=== PATIENT | male | born 1980 | race Caucasian/White ===

== ENCOUNTER 2017-02-16 01:04 | Emergency (ER) | payer OTHER ==
[~2017-02-16] VITALS: Ht 167.6 cm; Wt 93.0 kg
[~2017-02-16 01:04] MED LIST: PERCOCET 5/3251 EACH PO; VALIUM 5MG TABLE5 MG PO
[2017-02-16] MEDS ORDERED: NOMEDS XX (01:25)
--- OUTSIDE RECORDS SUMMARY | 2017-02-16 01:53 | External Medical Summary Rpt | CCD ---
Author Author , JAYESH MCCONNELL Address Unknown Phone [email or web address] Care Team Providers Care Manager Immunology Name Role Phone LINA BHATIA, LINA Unavailable Unavailable [facility]TE [facility] Unavailable Unavailable HOSPITAL, [facility], [facility], Unavailable Unavailable [facility] Unavailable [facility]available HOSPITA, [facility] Unavailable Unavailable INC, [facility] ROGEL CANDACE, ROGEL CANDACE Unavailable Unavailable [facility] Unavailable Unavailable SERVICES, [facility] AARON TAR, AARON TAR Unavailable Unavailable Purpose Continuity of Care Document - 08-27-2010 through 2016 Problems Code Diagnosis DOS Provider Status [id number] LONG-TERM 10-30-2011 [facility] (CURRENT) [facility] USE OF HOSPITA OTHER MEDICATIONS 69747 OTHER 06-12-2011 [facility] 7226 DEGENERATIO 06-12-2011 [facility] RAL DISC SITE UNSPEC 7242 LUMBAGO 06-12-2011 [facility] V571 OTHER 06-12-2011 [facility] THERAPY [facility] 64092 CORNEAL 02-24-2011 [facility] 74819 DISPLCMT 01-02-2011 [facility] LUMBAR [facility] INTERVERT INC DISC W/O MYELOPATHY 8820 OPEN WOUND 12-18-2010 [facility] NO EMERGENCY FINGER SERVICES ALONE W/O MENTION COMP Medications Na ND Rx Da Fi Fi Am Da Di Ph RX Ph St me C No te ll ll ou ys ag ar # ys at rm s nt no ma ic us Or Da si cy ia de te s n re d ER 24 10 10 0 3. 2 CL 24 HI Ac YT 20 -3 -3 50 IN 85 NE ti HR 80 1- 1- 0 IC 01 S ve OM 91 20 20 BR YC 05 11 11 PH ET IN 5 AR T MA A 0. CY 5% LL EY C E OI NT ME NT OX 00 09 09 0 12 30 CL 24 GO Ac YC 40 -2 -3 0. IN 63 DO ti OD 68 1- 0- 00 IC 63 FS ve ON 53 20 20 0 [place] E 00 11 11 PH HC 1 AR AL L MA AN 30 CY MG LL C TA BL ET ME 68 09 09 0 30 30 CL 24 GO Ac LO 18 -2 -2 .0 IN 63 DO ti XI 00 1- 7- 00 IC 61 FS ve CA 50 20 20 KY M 20 11 11 PH 15 1 AR AL MA AN MG CY TA LL BL C ET HY 00 09 09 0 60 30 CL [address] 60 -2 -2 .0 IN 63 DO ti OC 33 1- 7- 00 IC 62 FS ve OD 88 20 20 [place] ON 73 11 11 PH -A 2 AR AL CE MA AN TA CY ND NO LL PH C N 10 -3 25 PO 51 09 09 5 52 30 CL 24 AR Ac LY 99 -0 -0 7. IN 49 NO ti ET 10 2- 2- 00 IC 83 LD ve HY 45 20 20 0 LE 75 11 11 PH RI NE 7 AR CH MA AR GL CY D YC W OL LL C 33 50 PO WD OX 10 08 08 0 12 30 CL 24 SC Ac YC 70 -2 -3 0. IN 45 HO ti OD 20 7- 1- 00 IC 67 LD ve ON 00 20 20 0 E 90 11 11 PH AL HC 1 AR AN L MA C 30 CY MG LL C TA BL ET DI 00 08 08 0 30 30 CL 24 SC Ac AZ 59 -2 -3 .0 IN 45 HO ti EP 15 7- 1- 00 IC 68 LD ve AM 61 20 20 5 91 11 11 PH AL 0 AR AN MG MA C CY TA BL LL ET C IB 53 06 08 5 90 30 CL 24 GO Ac UP 74 -2 -0 .0 IN 12 DO ti RO 60 9- 1- 00 IC 39 FS ve FE 46 20 20 KY N 40 11 11 PH 40 1 AR AL 0 MA AN MG CY TA LL BL C ET DI 00 08 08 0 26 26 CL 24 GO Ac AZ 59 -0 -0 .0 IN 29 DO ti EP 15 1- 1- 00 IC 62 FS ve AM 61 20 20 KY 5 91 11 11 PH 0 AR AL MG MA AN CY TA BL LL ET C OX 10 08 08 0 10 30 CL 24 GO Ac YC 70 -0 -0 4. IN 29 DO ti OD 20 1- - IC 63 FS ve ON 00 20 20 0 KY E 90 11 11 PH HC 1 AR AL L MA AN 30 CY MG LL C TA BL ET OX 00 06 07 0 12 30 CL 24 GO Ac YC 40 -2 -0 0. IN 12 DO ti OD 60 9- 2- 00 IC 40 FS ve ON 52 20 20 0 KY -A 20 11 11 PH CE 1 AR AL TA MA AN ND CY NO PH LL EN C 7. 5- 32 5 OX 10 06 07 0 12 30 CL 24 GO Ac YC 70 -2 -0 0. IN 12 DO ti OD 20 9- 2- 00 IC 61 FS ve ON 00 20 20 0 KY E 90 11 11 PH HC 1 AR AL L MA AN 30 CY MG LL C TA BL ET DI 00 06 07 0 30 30 CL 24 GO Ac AZ 59 -2 -0 .0 IN 12 DO ti EP 15 9- 2- 00 IC 62 FS ve AM 62 20 20 KY 01 11 11 PH 10 0 AR AL MA AN MG CY TA LL BL C ET IB 53 06 06 5 90 30 CL 24 GO Ac UP 74 -2 -2 .0 IN 12 DO ti RO 60 9- 9- 00 IC 39 FS ve FE 46 20 20 KY N 40 11 11 PH 40 1 AR AL 0 MA AN MG CY TA LL BL C ET OX 10 06 06 0 60 30 CL 23 SC Ac YC 70 -0 -0 .0 IN 96 HO ti OD 20 1- 2- 00 IC 19 LD ve ON 00 20 20 E 80 11 11 PH AL HC 1 AR AN L MA C 15 CY MG LL C TA BL ET DI 00 06 06 0 60 30 CL 23 SC Ac AZ 59 -0 -0 .0 IN 96 HO ti EP 15 1- 2- 00 IC 20 LD ve AM 62 20 20 01 11 11 PH AL 10 0 AR AN MA C MG CY TA LL BL C ET OX 00 05 05 0 12 30 76 GO Ac YC 60 -0 -0 0. 30 DO ti OD 34 3- 5- 00 73 FS ve ON 99 20 20 0 KY E 22 11 11 HC 1 AL L AN 30 MG TA BL ET DI 00 05 05 0 60 30 CL 23 GO Ac AZ 59 -0 -0 .0 IN 77 DO ti EP 15 3- 3- 00 IC 70 FS ve AM 62 20 20 KY 01 11 11 PH 10 0 AR AL MA AN MG CY TA LL BL C ET OX 10 05 05 0 60 30 CL 23 GO Ac YC 70 -0 -0 .0 IN 77 DO ti OD 20 3- 3- 00 IC 71 FS ve ON 00 20 20 KY E 80 11 11 PH HC 1 AR AL L MA AN 15 CY MG LL C TA BL ET Procedures Procedure DOS Code Location Performer Comment ECG 47783 [facility] ROUTINE 2 N N ECG [facility] W/LEAST HOSPITA HOSPITA 12 LDS TRCG ONLY W/O I&R PHYSICAL 36495 [facility] 2 [facility] N MRI 42039 SEB GRIGSBY SPINAL 1 [facility]OSP CANAL INC INC LUMBAR W/O CONTRAST MATERIAL 3D 72339 SEB GRIGSBY RENDERING 1 [facility]OS[facility] W/INTERP INC INC & POSTPROCE SS SUPERVISI ON SIMPLE 16617 [facility] WALKER TAR REPAIR 1 EMERGENCY SCALP/NEC SERVICES K/AX/AMEENA T/TRUNK 2.5CM/< CLOSURE 8659 SEB GRIGSBY SKIN&SUBC 1 [facility] HOSP UTANEOUS INC INC TISSUE OTHER SITES Encounters Encounter Start End Date Code Location Performer Type Date [facility] [address] [facility] T OFFICE 70408 [facility] OUTPATIEN 1 1 [facility] 20 MINUT[facility] SEB - 1 1 [facility] OUTPATIEN [facility] T OFFICE 71824 LINA MILLS OUTPATIEN 1 1 J[facility]TE J[facility]TE [facility] 30 MINUTES [facility] SEB - 1 1 [facility] OUTPATIEN [facility] T EMERGENCY 61603 SEB 1 1 [facility] HOS[facility] DEPARTMEN INC T VISIT LOW/MODER SEVERITY EMERGENCY 08529 [facility] WALK[facility] TAR 1 1 EMERGENCY DEPARTMEN SERVICES T VISIT MODERATE SEVERITY
--- OUTSIDE RECORDS SUMMARY | 2017-02-16 01:53 | External Medical Summary Rpt | CCD ---
Author Author , JAYESH MCCONNELL Address Unknown Phone [email or web address] Care Team Providers Care Surgical Coder Name Role Phone LINA BHATIA, LINA Unavailable Unavailable [facility] Unavailable Unavailable HOSPITAL, [facility], Unavailable [facility], Unavailable Unavailable [facility] Unavailable Unavailable HOSPITA, [facility] HOSPITA [facility] Unavailable Unavailable INC, [facility] ROGEL CANDACE, ROGEL CANDACE Unavailable Unavailable [facility] Unavailable Unavailable SERVICES, [facility] AARON TAR, AARON TAR Unavailable Unavailable Purpose Continuity of Care Document - 08-27-2010 through 2016 Problems Code Diagnosis DOS Provider Status [id number] LONG-TERM 10-30-2011 [place] (CURRENT) [facility] USE OF HOSPITA OTHER MEDICATIONS 71424 OTHER 06-12-2011 [facility] 7226 DEGENERATIO 06-12-2011 [facility] RAL DISC SITE UNSPEC 7242 LUMBAGO 06-12-2011 [facility] V571 OTHER 06-12-2011 [facility] 03698 CORNEAL 02-24-2011 [facility] 67494 DISPLCMT 01-02-2011 [place] LUMBAR [facility] INTERVERT INC DISC W/O MYELOPATHY [...] AR AL CE MA AN TA CY IA NO LL PH C N 10 -3 [...] CE 1 AR AL TA MA AN IA CY NO PH LL EN C 7. [...] Procedure DOS Code Location Performer Comment ECG 56504 [facility] ROUTINE 2 N N ECG [facility] W/LEAST HOSPITA HOSPITA 12 LDS TRCG ONLY W/O I&R PHYSICAL 82351 [facility] 2 [facility] N MRI 39905 SEB GRIGSBY SPINAL 1 [facility] CANAL INC INC LUMBAR W/O CONTRAST MATERIAL 3D 35009 SEB GRIGSBY RENDERING 1 [facility] W/INTERP INC INC & POSTPROCE SS SUPERVISI ON SIMPLE 24590 [facility] WALKER TAR REPAIR 1 EMERGENCY SCALP/NEC SERVICES K/AX/AMEENA T/TRUNK 2.5CM/< CLOSURE 8659 SEB GRIGSBY SKIN&SUBC 1 [facility] UTANEOUS INC INC TISSUE OTHER SITES Encounters Encounter Start End Date Code Location Performer Type Date [facility] T OFF[facility] 99388 [facility] OUTPATIEN [address] [facility] 20 MINUTES [facility] SEB - 1 1 [facility]PATIEN [facility] T OFFICE 80761 LINA MILLS OUTPATIEN [address] [facility] 30 MINUTES [facility]B - 1 1 [facility] OUTPATIEN [facility] T EMERGENCY 08133 SEB 1 1 [facility] DEPARTMEN INC T VISIT LOW/MODER SEVERITY EMERGENCY 14765 [facility] WALKER TAR 1 1 EMERGENCY DEPARTMEN SERVICES T VISIT MODERATE SEVERITY
--- OUTSIDE RECORDS SUMMARY | 2017-02-16 01:54 | External Medical Summary Rpt | CCD ---
Demographics Preferred Language Liberian Marital Status Unknown Scientologist Affiliation Unknown Race Unknown Ethnic Group Unknown Author Author , JAYESH Organization JAYESH Address Unknown Phone Immunization Unable to retrieve immunization data due to connection failure with Immunization Registry. Please try again later.
--- OUTSIDE RECORDS SUMMARY | 2017-02-16 01:54 | External Medical Summary Rpt | CCD ---
Demographics Preferred Language [place] Marital Status Unknown Congregational Affiliation Unknown Race Unknown Ethnic Group Unknown Author Author , JAYESH Organization JAYESH Address Unknown Phone Immunization Unable to retrieve immunization data due to connection failure with Immunization Registry. Please try again later.
--- OUTSIDE RECORDS SUMMARY | 2017-02-16 01:54 | External Medical Summary Rpt ---
Author Author JAYESH Jimenez, JAYESH Production Organization [employer] Address Unknown Phone Unavailable
--- OUTSIDE RECORDS SUMMARY | 2017-02-16 01:54 | External Medical Summary Rpt | CCD ---
Author Author , JAYESH MCCONNELL Address Unknown Phone [email or web address] Care Team Providers Care Hospitality Team Member Name Role Phone LINA BHATIA, LINA Unavailable Unavailable JANNETTE [facility] Unavailable Unavailable HOSPITAL, [facility], Unavailable [facility]available [facility], Unavailable Unavailable [facility] Unavailable Unavailable HOSPITA, [facility] Unavailable Unavailable INC, [facility] ROGEL CANDACE, ROGEL CANDACE Unavailable Unavailable [facility] Unavailable Unavailable SERVICES, [facility] AARON TAR, AARON TAR Unavailable Unavailable Purpose Continuity of Care Document - 08-27-2010 through 2016 Problems Code Diagnosis DOS Provider Status [id number] LONG-TERM 10-30-2011 [place] (CURRENT) [facility] USE OF HOSPITA OTHER MEDICATIONS 88947 OTHER 06-12-2011 [facility] 7226 DEGENERATIO 06-12-2011 [facility] RAL DISC SITE UNSPEC 7242 LUMBAGO 06-12-2011 [facility] V571 OTHER 06-12-2011 [facility] THERAPY [facility] 99775 CORNEAL 02-24-2011 [facility] 11118 DISPLCMT 01-02-2011 [place] LUMBAR [facility] INTERVERT INC DISC W/O MYELOPATHY 8820 [...] AR AL CE MA AN TA CY NH NO LL PH C N 10 -3 [...] IN 45 HO ti OD 20 7- IC 67 LD ve ON 00 20 20 0 E 90 11 11 PH AL HC 1 AR AN L MA C 30 CY MG LL C TA BL ET DI 00 08 08 0 30 30 CL 24 SC Ac AZ 59 -2 -3 .0 IN 45 HO ti EP 15 7- - IC 68 LD ve AM 61 20 [...] 29 DO ti EP 15 1- 1- IC 62 FS ve AM 61 20 20 [place] 5 91 11 11 PH 0 AR AL MG MA AN CY TA BL LL ET C OX 10 08 08 0 10 30 CL 24 GO Ac YC 70 -0 -0 4. IN 29 DO ti OD 20 1- IC 63 FS ve ON 00 20 [...] CE 1 AR AL TA MA AN NH CY NO PH LL EN C 7. [...] 3- 00 IC 71 FS ve ON 20 KY E 80 11 11 PH HC 1 AR AL L MA AN 15 CY MG LL C TA BL ET Procedures Procedure DOS Code Location Performer Comment ECG 85892 [facility] ROUTINE 2 N N ECG [facility] L[facility] TRCG ONLY W/O I&R PHYSICAL 78364 [facility] TH[facility]AP[facility] 2 [facility] N 3D 75749 SEB JOYCEON RENDERING 1 [facility] W/INTERP INC INC & POSTPROCE SS SUPERVISI ON MRI 54082 SEB GRIGSBY SPINAL 1 [facility] CANAL INC INC LUMBAR W/O CONTRAST MATERIAL SIMPLE 62205 ARPIT WALKER TAR REPAIR 1 EMERGENCY SCALP/NEC SERVICES K/AX/AMEENA T/TRUNK 2.5CM/< CLOSURE 8659 SEB SEB SKIN&SUBC 1 [facility] UTANEOUS INC INC TISSUE OTHER SITES Encounters Encounter Start End Date Code Location Performer Type Date [facility] 59222 [facility] OUTPATI[facility] 1 1 [facility] [address] [facility] SEB - [address] [facility]PATIEN [facility] T OFFICE 46879 LINA MILLS OUTPATIEN 1 1 JANNETTE JANNETTE [facility] [address] [facility] SEB - [address] [facility] OUTPATIEN [facility] T EMERGENCY 30796 ARPIT AARON TAR 1 1 EMERGENCY DEPARTMEN SERVICES T VISIT MODERATE SEVERITY EMERGENCY 99955 SEB 1 1 [facility] DEPARTMEN INC T VISIT LOW/MODER SEVERITY
--- OUTSIDE RECORDS SUMMARY | 2017-02-16 01:54 | External Medical Summary Rpt | CCD ---
Author Author , JAYESH MCCONNELL Address Unknown Phone [email or web address] Care Team Providers Care Blood Bank Laboratory Technician Name Role Phone LINA BHATIA, LINA Unavailable Unavailable [facility]TE [facility] Unavailable Unavailable HOSPITAL, [facility], Unavailable [facility]available [facility], Unavailable Unavailable [facility] Unavailable Unavailable HOSPITA, [facility] Unavailable Unavailable INC, [facility] ROGEL CANDACE, ROGEL CANDACE Unavailable Unavailable [facility] Unavailable Unavailable SERVICES, [facility] AARON TAR, AARON TAR Unavailable Unavailable Purpose Continuity of Care Document - 08-27-2010 through 2016 Problems Code Diagnosis DOS Provider Status [id number] LONG-TERM 10-30-2011 [place] (CURRENT) [facility] USE OF HOSPITA OTHER MEDICATIONS 37264 OTHER 06-12-2011 [facility] 7226 DEGENERATIO 06-12-2011 [facility] RAL DISC SITE UNSPEC 7242 LUMBAGO 06-12-2011 [facility] V571 OTHER 06-12-2011 [facility] THERAPY [facility] 86539 CORNEAL 02-24-2011 [facility] 52972 DISPLCMT 01-02-2011 [place] LUMBAR [facility] INTERVERT INC [...] AR AL CE MA AN TA CY MD NO LL PH C N 10 -3 [...] CE 1 AR AL TA MA AN MD CY NO PH LL EN C 7. [...] Procedure DOS Code Location Performer Comment ECG 08969 [facility] ROUTINE 2 N N ECG [facility] 12 LDS TRCG ONLY W/O I&R PHYSICAL 94470 [facility] THERAPY [address] [facility] N 3D 68532 SEB JOYCEON RENDERING 1 [facility] W/INTERP INC INC & POSTPROCE SS SUPERVISI ON MRI 36458 SEB GRIGSBY SPINAL 1 [facility] CANAL INC INC LUMBAR W/O CONTRAST MATERIAL SIMPLE 54847 ARPIT WALKER TAR REPAIR 1 EMERGENCY SCALP/NEC SERVICES K/AX/AMEENA T/TRUNK 2.5CM/< CLOSURE 8659 SEB SEB SKIN&SUBC 1 [facility] UTANEOUS INC INC TISSUE OTHER SITES Encounters Encounter Start End Date Code Location Performer Type Date [facility] 2 [facility] T OFFICE 23308 TACHO MAR[facility] OUTPATIEN 1 1 VISION [facility] 20 MINUTES [facility] SEB - 1 1 [facility] OUTPATIEN [facility] T OFFICE 17437 LINA MILLS OUTPATIEN 1 1 JANNETTE JANNETTE [facility] 30 MINUTES [facility] SEB - 1 1 [facility] OUTPATIEN [facility] T EMERGENCY 34841 ARPIT AARON TAR 1 1 EMERGENCY DEPARTMEN SERVICES T VISIT MODERATE SEVERITY EMERGENCY 78525 SEB 1 1 [facility] DEPARTMEN INC T VISIT LOW/MODER SEVERITY
[2017-02-16 02:34] LABS: URINE BILIRUBIN - DIPSTICK NEGATIVE (NEG); URINE BLOOD NEGATIVE (NEG)
[2017-02-16 02:45] LABS: HEMOGLOBIN 14.4 g/dL (14.1-18.0); LYMPH % 30.9 % (10-50)
--- NOTE | 2017-02-16 03:10 | Emergency Room Report ---
History of Present Illness Time Seen by MD Joseph Presenting Problem in Triage Pt arrived:Walked Presenting Problem:PT STATES HE WAS CUTTING UP A DEER ABOUT A WEEK AGO AND NOW HAS AREAS ON FACE, HANDS, ARMS, STATES HE THINKS HE HAS A PARASITE FROM SKINNING DEER. 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 N Clinical Suspician of Infection? N Mental Status: 1 - Regular (Normal Baseline) Sepsis Risk:Possible Sepsis Risk Have you (or family members/close friends) recently traveled outside the [place]? N If Yes, where/when: Have you had exposure to infectious disease within the past month? N TB? Other? Specify: Source patient, RN notes reviewed, family, RN/MD Exam Limitations no limitations Comment This is a 36-year-old male presenting to the emergency room with a sore on his LEFT palm, questioning if she could have a possible parasite infection secondary to handling deer meat with bare hands. He denies any nausea, vomiting or diarrhea but he has occasional muscle aches/ cramps, which are not unusual for him. ALLERGIES Coded Allergies: NO KNOWN ALLERGIES (02/16/17) Home Medications Reported Medications No Home Medications (NO HOME MEDICATIONS) 1 EACH XX ONCE History Medical History General Angina: No AL: No Hypertension? Yes Hyperlipidemia? No CHF? No COPD? No Asthma? No CVA? No Seizures? No Diabetes? No GB Disease: No MRSA? No TB? No Cancer? No Immunization Hx DT/Tetanus < 1 YR AGO Surgical Hx Previous Surgery?Y KIDNEY SURGERY KNEE SURGERY HAND SURGERY Social History Smoking Hx Smoker: Current Every Day Smoker Tobacco: Yes Type Cigarettes Packs/day 1 1/2 - 2 Packs Alcohol Alcohol: No Review of Systems All Other Systems Reviewed and Negative Skin lesions (LEFT palm lesion) Physical Exam Vital Signs Vital Signs Date Time Temp Pulse Resp B/P Pulse O2 O2 Flow FiO2 Ox Delivery Rate 02/16 0321 102 20 156/99 98 02/16 0242 102 20 156/99 98 02/16 0203 102 14 162/106 98 02/16 0111 98.4 107 22 164/116 99 General Appearance normal appearance, WD/WN, no apparent distress, anxious Respiratory Status Yes: trachea midline, chest symmetrical, non tender chest. No: respiratory distress. Lung Sounds bilateral: normal breath sounds, lungs clear. Cardiovascular normal exam, regular rate/rhythm, no peripheral edema, no gallop, no JVD, no murmur, no rub, normal peripheral pulses Gastrointestinal normal bowel sounds, normal exam, non tender, soft, no organomegaly Extremities non-tender, normal range of motion, normal inspection Neurologic alert, clinical science liaison II-XII nml as tested, normal exam, oriented x 3 Mental status normal mood/affect Skin normal color, warm/dry, LEFT palm 0.5 cm superficial laceration, secondary to knife cut while skinning a deer over the weekend, with normal healing process , no discharge, no surrounding erythema. Medical Decision Making LABS/Meds/Orders Pt receiving controlled substance in ED? No Comment Appropriate blood work obtained patient was advised to follow-up with infectious disease specialist at [facility] (per discharge instructions), at his earliest convenience. Patient will return promptly to the emergency room for any new develop one such as nausea, vomiting, diarrhea, muscle aches, etc. Results/Orders Laboratory Tests 02/16/17224: Trichinella Antibody Pending 02/16/17224: Myoglobin Pending, Toxoplasma IgA Ab Pending, Toxoplasma gondii IgG Pending, Toxoplasma gondii IgM Pending 02/16/17224: Creatine Kinase 267, CK-MB (CK-2) Rel Index 0.9, CK and CKMB Interp 2.5, Troponin I < 0.02, Toxoplasma IgA Ab Cancelled, Toxoplasma gondii IgG Cancelled, Toxoplasma gondii IgM Cancelled 02/16/17224: Sodium 139, Potassium 3.1 L, Chloride 100, Carbon Dioxide 27, BUN 10, Creatinine 1.2, Estimated Creat Clear 111, Estimated GFR (MDRD) 68, Glucose 127 H, Calcium 9.6, Total Bilirubin 0.3, AST 23, ALT 32, Alkaline Phosphatase 132 H , Total Protein 8.0, Albumin 4.1, Globulin 3.9 H, Albumin/Globulin Ratio 1.1, WBC 6.5, RBC 4.80, Hgb 14.4, Hct 42.4, MCV 88.4, RDW 12.3, Plt Count 150, MPV 8.8, Gran % 56.6, Gran # 3.7, Lymphocytes % 30.9, Monocytes % 8.5, Eosinophils % 3.7, Basophils % 0.2, Lymphocytes # 2.0, Monocytes # 0.6, Eosinophils # 0.2, Basophils # 0.0, PUBS MCHC 34.0, MCH 30.1, Leptospirosis Antibody Pending 02/16/17 0210: Urine Color YELLOW, Urine Appearance CLEAR, Urine pH 6.0, Ur Specific [place] 1.015, Urine Protein NEGATIVE, Urine Ketones NEGATIVE, Urine Blood NEGATIVE, Urine Nitrate NEGATIVE, Urine Bilirubin NEGATIVE, Urine Urobilinogen 0.2, Ur Leukocyte Esterase NEGATIVE, Amorphous Sediment TRACE, Urine Mucus TRACE, Urine Glucose NEGATIVE Orders Procedure Date/time Status TOXOPLASMA IGG AB 02/16 225 Active LEPTOSPIRAL AB 02/16 215 Active TRICHINELLA AB 02/16 118 Active MYOGLOBIN 02/16 118 Active CARDIAC ENZYMES 02/16 118 Complete URINALYSIS/COMPLETE 02/16 117 Complete CBC WITH AUTO DIFF 02/16 117 Complete CHEM 12 PROFILE 02/16 117 Complete Departure Departure Time of Disposition 0239 Disposition DC Home or Self Care(routine) Clinical Impression Primary Impression: Myalgia Secondary Impressions: Exposure to communicable diseases Condition STABLE Referrals BRADLY CARPENTER: Today after leaving ER Patient Instructions DI for Accidental Exposure to Body Fluids Additional Instructions Please follow-up with the patient disease specialist at [facility] ( Dr. Bradly Carpenter) at your earliest convenience. Please call the office today in order to schedule a follow-up appointment. See your PCP within 2 days, as well. If unable to see any othe physicians listed above, return to this ER for re- evaluation. Discharge Counseling Counseled pt/family regarding diagnosis, test results, medications/RX, home care, follow up needs Comment Please follow-up with the patient disease specialist at [facility] ( Dr. Bradly Carpenter) at your earliest convenience. Please call the office today in order to schedule a follow-up appointment. See your PCP within 2 days, as well. ED Critical Care Critical Care No at [phone]
--- NOTE | 2017-02-16 03:10 | Emergency Room Report ---
History of Present Illness Time Seen by MD Joseph Presenting Problem in Triage Pt arrived:Walked Presenting Problem:PT STATES HE WAS CUTTING UP A DEER ABOUT A WEEK AGO AND NOW HAS AREAS ON FACE, HANDS, ARMS, STATES HE THINKS HE HAS A PARASITE FROM SKINNING DEER. 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 N Clinical Suspician of Infection? N Mental Status: 1 - Regular (Normal Baseline) Sepsis Risk:Possible Sepsis Risk Have you (or family members/close friends) recently traveled outside the [place]? N If Yes, where/when: Have you had exposure to infectious disease within the past month? N TB? Other? Specify: Source patient, RN notes reviewed, family, RN/MD Exam Limitations no limitations Comment This is a 36-year-old male presenting to the emergency room with a sore on his LEFT palm, questioning if she could have a possible parasite infection secondary to handling deer meat with bare hands. He denies any nausea, vomiting or diarrhea but he has occasional muscle aches/ cramps, which are not unusual for him. ALLERGIES Coded Allergies: NO KNOWN ALLERGIES (02/16/17) Home Medications Reported Medications No Home Medications (NO HOME MEDICATIONS) 1 EACH XX ONCE History Medical History General Angina: No DC: No Hypertension? Yes Hyperlipidemia? No CHF? No COPD? No Asthma? No CVA? No Seizures? No Diabetes? No GB Disease: No MRSA? No TB? No Cancer? No Immunization Hx DT/Tetanus < 1 YR AGO Surgical Hx Previous Surgery?Y KIDNEY SURGERY KNEE SURGERY HAND SURGERY Social History Smoking Hx Smoker: Current Every Day Smoker Tobacco: Yes Type Cigarettes Packs/day 1 1/2 - 2 Packs Alcohol Alcohol: No Review of Systems All Other Systems Reviewed and Negative Skin lesions (LEFT palm lesion) Physical Exam Vital Signs Vital Signs Date Time Temp Pulse Resp B/P Pulse O2 O2 Flow FiO2 Ox Delivery Rate 02/16 0321 102 20 156/99 98 02/16 0242 102 20 156/99 98 02/16 0203 102 14 162/106 98 02/16 0111 98.4 107 22 164/116 99 General Appearance normal appearance, WD/WN, no apparent distress, anxious Respiratory Status Yes: trachea midline, chest symmetrical, non tender chest. No: respiratory distress. Lung Sounds bilateral: normal breath sounds, lungs clear. 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 Medical Decision Making LABS/Meds/Orders Pt receiving controlled substance in ED? No Comment Appropriate blood work obtained patient was advised to follow-up with infectious disease specialist at [facility] (per discharge instructions), at his earliest convenience. Patient will return promptly to the emergency room for any new develop one such as nausea, vomiting, diarrhea, muscle aches, etc. Results/Orders Laboratory Tests 02/16/17224: Trichinella Antibody Pending 02/16/17224: Myoglobin Pending, Toxoplasma IgA Ab Pending, Toxoplasma gondii IgG Pending, Toxoplasma gondii IgM Pending 02/16/17224: Creatine Kinase 267, CK-MB (CK-2) Rel Index 0.9, CK and CKMB Interp 2.5, Troponin I < 0.02, Toxoplasma IgA Ab Cancelled, Toxoplasma gondii IgG Cancelled, Toxoplasma gondii IgM Cancelled 02/16/17224: Sodium 139, Potassium 3.1 L, Chloride 100, Carbon Dioxide 27, BUN 10, Creatinine 1.2, Estimated Creat Clear 111, Estimated GFR (MDRD) 68, Glucose 127 H, Calcium 9.6, Total Bilirubin 0.3, AST 23, ALT 32, Alkaline Phosphatase 132 H , Total Protein 8.0, Albumin 4.1, Globulin 3.9 H, Albumin/Globulin Ratio 1.1, WBC 6.5, RBC 4.80, Hgb 14.4, Hct 42.4, MCV 88.4, RDW 12.3, Plt Count 150, MPV 8.8, Gran % 56.6, Gran # 3.7, Lymphocytes % 30.9, Monocytes % 8.5, Eosinophils % 3.7, Basophils % 0.2, Lymphocytes # 2.0, Monocytes # 0.6, Eosinophils # 0.2, Basophils # 0.0, PUBS MCHC 34.0, MCH 30.1, Leptospirosis Antibody Pending 02/16/17 0210: Urine Color YELLOW, Urine Appearance CLEAR, Urine pH 6.0, Ur Specific [place] 1.015, Urine Protein NEGATIVE, Urine Ketones NEGATIVE, Urine Blood NEGATIVE, Urine Nitrate NEGATIVE, Urine Bilirubin NEGATIVE, Urine Urobilinogen 0.2, Ur Leukocyte Esterase NEGATIVE, Amorphous Sediment TRACE, Urine Mucus TRACE, Urine Glucose NEGATIVE Orders Procedure Date/time Status TOXOPLASMA IGG AB 02/16 225 Active LEPTOSPIRAL AB 02/16 215 Active TRICHINELLA AB 02/16 118 Active MYOGLOBIN 02/16 118 Active CARDIAC ENZYMES 02/16 118 Complete URINALYSIS/COMPLETE 02/16 117 Complete CBC WITH AUTO DIFF 02/16 117 Complete CHEM 12 PROFILE 02/16 117 Complete Departure Departure Time of Disposition 0239 Disposition DC Home or Self Care(routine) Clinical Impression Primary Impression: Myalgia Secondary Impressions: Exposure to communicable diseases Condition STABLE Referrals BRADLY CARPENTER: Today after leaving ER Patient Instructions DI for Accidental Exposure to Body Fluids Additional Instructions Please follow-up with the patient disease specialist at [facility] ( Dr. Bradly Carpenter) at your earliest convenience. Please call the office today in order to schedule a follow-up appointment. See your PCP within 2 days, as well. If unable to see any othe physicians listed above, return to this ER for re- evaluation. Discharge Counseling Counseled pt/family regarding diagnosis, test results, medications/RX, home care, follow up needs Comment Please follow-up with the patient disease specialist at [facility] ( Dr. Bradly Carpenter) at your earliest convenience. Please call the office today in order to schedule a follow-up appointment. See your PCP within 2 days, as well. ED Critical Care Critical Care No at [phone]
[2017-02-16 03:21] VITALS: BP 156/99
[2017-02-21 05:22] LABS: TOXOPLASMA GONDII IGA ANTIBODY < 0.90 EIA (< 0.90)
== END 2017-02-16 03:22 | disposition home or self-care (01) ==
LOC: ER 01:04
PROVIDERS: Emergency Medicine
DX: M79.1 Myalgia (principal); Z20.9 Contact with and (suspected) exposure to unspecified communicable disease; I10 Essential (primary) hypertension; F17.210 Nicotine dependence, cigarettes, uncomplicated

== ENCOUNTER 2017-03-04 10:23 | Emergency (ER) | payer BC ==
[~2017-03-04] VITALS: Ht 167.6 cm; Wt 90.7 kg
[~2017-03-04 10:23] MED LIST changes: +NOMEDS XX
--- NOTE | 2017-03-04 10:49 | Urgent Treatment Center Report ---
History of Present Issue Date/Time Seen by Provider 03/04/17 1040 Visit Reason Pt arrived:Walked Presenting Problem:C/O RED SPOTS/SCABS ALL OVER BODY Location if Accident: Onset of symptoms date/time:/ or onset unknown for:MEDICAL HX UNKNOWN Have you (or family members/close friends) recently traveled outside the [place]? N If Yes, where/when: Have you had exposure to infectious disease within the past month? TB? Other? Specify: Patient state that he has been noticing red spots that have popped up on his body State that one was on his abdominal area and he put a bandage around it and now it is irritated and scabbing all around the area. State that he also had a place come up on his left forearm area and thinks that something may have come out of it State that he put a bandage on it and some cream and now it looks infected. State that he has been having all these areas pop up on him after cleaning deer several weeks ago. State that he went to the ER and was referred to Infectious Disease Dr Fisher at however has never follow up with Dr Fisher or his family doctor as advised. ALLERGIES Coded Allergies: No Known Allergies (03/04/17) Home Medications Reported Medications No Home Medications (NO HOME MEDICATIONS) 1 EACH XX ONCE History Medical History General CAD? No Angina: No SC: No Hypertension? Yes Hyperlipidemia? No CHF? No DVT? No PE? No COPD? No Asthma? No Anemia? No GERD? No Gastric ulcers? No GI Bleed? No Hernia? No Thyroid Problems? No Hypothyroidism? No CVA? No Seizures? No Diabetes? No Renal Insuffiency? No UTI? No Stones? No BPH? No GB Disease: No Nephritic Syndrome? No Asplenia? No Hepatitis? No Sickle Cell Disease? No Arthritis? No Migraines? No Cataracts? No Glaucoma? No MRSA? No HIV? No TB? No Anxiety? No Depression? No Cancer? No More? No Immunization HX DT/Tetanus < 1 YR AGO Surgical Hx Previous Surgery?Y KIDNEY SURGERY KNEE SURGERY HAND SURGERY Social History Smoking Hx Smoker: Current Every Day Smoker Tobacco: Yes Type Cigarettes Packs/day 1 1/2 - 2 Packs Alcohol Alcohol: No Review of Systems All Other Systems Reviewed and Negative Skin dryness, lesions, rash Physical Exam Vital Signs Vital Signs Date Time Temp Pulse Resp B/P Pulse O2 O2 Flow FiO2 Ox Delivery Rate 03/04 1033 98.7 121 20 161/102 100 General Appearance normal appearance, WD/WN, no apparent distress Respiratory Status Yes: trachea midline, chest symmetrical. No: respiratory distress. Cardiovascular normal exam, regular rate/rhythm, no peripheral edema Neurologic alert, normal exam, oriented x 3 Skin drainage, lesions, Area noted on left forearm with drainage, several red scabbed areas on his abdomen and legs State that has been having problems with his skin for over 3 weeks now Medical Decision Making LABS/Meds/Orders Pt receiving controlled substance in ED? No Progress [facility] Progress Notes Comment Spoke to [facility] Dr Hightower and will see patient today at 130 advised do not start patient on medication that they will see him and prescribe accordiningly Departure Departure Time of Disposition 1113 Disposition DC Home or Self Care(routine) Clinical Impression Primary Impression: Skin infection Condition STABLE Referrals [facility] BRADLY FISHER: Today after leaving ER Make appointment dayanara JOSSELYN HAJI (Family) Patient Instructions DI for Rash Additional Instructions DO no pick or scratch at rash areas Keep area clean and dry Call Dr Fisher today after leaving the clinic and try to get in to see him as soon as possible Follow up with Dermatology today also and make appointemtn Return if needed Discharge Counseling Counseled pt/family regarding diagnosis, follow up needs at 1126
[2017-03-04 11:31] VITALS: BP 161/102
== END 2017-03-04 11:31 | disposition home or self-care (01) ==
LOC: UTC 10:23
DX: L03.114 Cellulitis of left upper limb (principal)

== ENCOUNTER → 2017-03-13 | Outpatient (CLI) | payer BC ==
[2017-03-13 18:28] LABS: LYMPH # 2.1 K/mm3 (0.7-4.5); LYMPH % 19.3 % (10-50)
[2017-03-13 18:38] LABS: HEMOGLOBIN 16.1 g/dL (14.1-18.0)
[2017-03-13 19:24] LABS: BUN 12 mg/dL (7-18)
[2017-03-13 19:50] LABS: GFR (ESTIMATED) 68 ML/MIN (>60)
== END ==
LOC: LAB 18:04
PROVIDERS: Nurse Practitioner Family
DX: R53.83 Other fatigue (principal); E55.9 Vitamin D deficiency, unspecified

== ENCOUNTER → 2017-03-23 | Outpatient (CLI) | payer BC ==
--- NOTE | 2017-03-24 22:32 | RADIOLOGY REPORT PS360 ---
PROCEDURE: 2-D M-mode and color Doppler study INDICATIONS FOR THE TEST: Chest pain + COPD Heart Murmur Tobacco Smoking+ Palpitations Fatigue Syncope Edema Hypertension+Diabetes Mellitus Rheumatic Fever SOB+QUICK Obesity+Hyperlipidemia+ Family History HD Additional History PATIENT INFORMATION HEIGHT: 66 WEIGHT:200 GENDER: Male B/P:210/90 2-D/M-MODE INTERPRETATION: 2-D MEASUREMENTS OBSERVED VALUES IN CMS Right Ventricular Dimension (RVDd) 2.9 Interventricular Septum (Thickness)(IVsd) 1.0 Left Ventricular Internal Dimensions(LVIDd) 5.0 Left Ventricular Posterior Wall (Thickness)(LVPWd) 0.9 Aortic Root 3.6 Aortic Cusp Separation 2.4 Left Atrial Dimensions (LAD) 2.8 2D 1. Left atrium is qualitatively mildly enlarged, left ventricle is normal size, there is mild qualitative concentric left ventricular hypertrophy, visually estimated ejection fraction 55% with no obvious regional wall motion abnormality. 2. The right atrium is normal size, right ventricle is mildly enlarged with normal contractility. 3. The aortic valve is minimally thickened and fibrosed. 4. The mitral and tricuspid valve are structurally normal. 5. The pulmonic valve is poorly visualized. 6. No significant pericardial effusion noted. DOPPLER INTERROGATION: Doppler interrogation of the aortic, mitral and tricuspid valvular presence of mild mitral and tricuspid regurgitation, tricuspid regurgitant jet velocity insufficient for calculation of the right ventricular systolic pressure, grade 1 diastolic dysfunction seen without tissue Doppler evidence of raised left atrial pressure. CONCLUSION: 1. Mildly enlarged left atrium, normal left ventricular size, mild qualitative concentric left ventricular hypertrophy, visually estimated ejection fraction 55% with no obvious regional wall motion abnormality, grade 1 diastolic dysfunction seen without tissue Doppler evidence of raised left atrial pressure. 2. Mild mitral and tricuspid regurgitation. 3. No significant pericardial effusion noted.
== END ==
LOC: RT 09:30
DX: R07.9 Chest pain, unspecified (principal); I10 Essential (primary) hypertension; E78.5 Hyperlipidemia, unspecified; Z72.0 Tobacco use

== ENCOUNTER 2017-04-15 07:53 | Day surgery (SDC) | payer BC ==
[2017-04-15 08:22] LABS: HEMOGLOBIN 14.6 g/dL (14.1-18.0); LYMPH % 28.4 % (10-50)
[2017-04-15 08:26] LABS: BUN 8 mg/dL (7-18)
[2017-04-15 08:27] LABS: GFR (ESTIMATED) 95 ML/MIN (>60)
--- NOTE | 2017-04-15 12:26 | RADIOLOGY REPORT PS360 ---
CARDIAC CATHETERIZATION DATE OF CATHETERIZATION:04/15/2017 11:00 AM PROCEDURES: 1. Left heart catheterization 2. Selective coronary angiogram 3. Left ventriculogram 4. Intravascular ultrasound to the LAD 5. FFR to the LAD 6. Drug-eluting stent deployment to the proximal to mid LAD in a contiguous manner INDICATION FOR TEST: 1. Angina pectoris class III and IV 2. Coronary artery disease 3. FFR index 0.80 with ischemic response to adenosine 4. Intravascular ultrasound demonstrating coronary artery disease 4.2 sq mm minimal luminal area Informed consent was obtained prior to the procedure. COMPLICATIONS: None ESTIMATED BLOOD LOSS: Less than 10 ml. TECHNIQUE: One percent lidocaine used to anesthetize the right anterior aspect of the wrist. The right radial artery was accessed via the Seldinger technique. A 6 Upper Sor[place] sheath was placed in the right radial artery. 2.5 mg of verapamil, 800 mcg of nitroglycerin and 5000 U Heparin were given through the arterial sheath. A trap catheter was used to perform left heart catheterization left ventriculogram and selective coronary angiography. A hazy angiographically indeterminate lesion was present in the very proximal LAD adjacent to a first diagonal artery. 5000 units of heparin was administered through the arterial sheath giving an ACT out of range. A JL 3.5 guide catheter was placed in the ascending aorta and used to cannulate the left main artery. A BMW wire was placed distally and in intravascular ultrasound probe was advanced. An eccentric plaque was identified in the proximal LAD immediately adjacent to the first diagonal artery giving an minimal luminal area of 4.2 sq mm. The hazy ruptured plaque with possible thrombus continue to be seen angiographically. Because of this FFR interrogation was performed. An FFR wire was normalized in the ascending aorta and the guide catheter was used intubate the left main artery. The FFR wire was placed distally in the initial by FFR measured 0.77 upon passage of the wire distally. At this point I was not believing this was the true index therefore the wire was placed back into the ascending aorta normalized. There is difficulty with the wire therefore the wire was discarded and a fresh FFR wire was normalized in the ascending aorta. The guide catheter was used intubate the left main artery wire was placed distally into the LAD. Adenosine was infused in the FFR index dropped to 0.80. This was an ischemic response to adenosine therefore 3.5 x 26 mm resolute Elpidio stent was deployed at 14 stephanie reducing the stenosis. Distally the stent change the confirmation of the LAD itself therefore after 2 aliquots of 800 mcg of intracoronary nitroglycerin I could still not get the lesion to reduce therefore a 3 mm x 12 mm resolute Elpidio stent was placed distal to the first stent at 15 stephanie. The balloon was brought back to 20 and the 2 stents and deployed at 22 stephanie to post dilate. An additional 3.5 x 15 mm resolute Elpidio stent was placed proximally at 15 stephanie and deployed overlapping the first stent that was initially deployed. Excellent angiographic results were obtained with wide DILMA-3 flow and complete resolution of the plaque and angiographic defect to 0%. The closing ACT was 314 seconds. Patient received Brilinta and aspirin while on the table. The sheath was removed good hemostasis was achieved using TR banding patient was transferred to the postop holding area in stable condition ANGIOGRAPHIC RESULTS: 1. The left main artery normal 2. The left anterior descending artery has very proximal 10-20% stenosis followed by a hazy angiographically indeterminant approximately 40-50% stenosis followed by additional sequential 30% mid vessel stenoses 3. The circumflex artery codominant and normal 4. The right coronary artery codominant and has mid vessel eccentric 30% stenosis and a distal 20% stenosis 5. The PUCKETT ventriculogram reveals normal 65% 6. The left ventricular end-diastolic pressure mildly elevated 20 mmHg IMPRESSION: 1. Angiographically indeterminate yet clinically worrisome disease in the proximal LAD 2. Borderline intravascular ultrasound significant based on IVUS criteria at 4.2 sq mm 3. Ischemic response to adenosine FFR index 0.80 4. Successful stenting of the proximal to mid LAD in a contiguous manner with 3 drug-eluting stents 5. Persistent mild to moderate right coronary artery disease 6. Normal ejection fraction 7. Mild the elevated LVEDP PLAN: 1. Brilinta and aspirin 2. Avoidance of tobacco products 3. LDL less than 55 4. Very aggressive risk factor modification for ischemic heart disease 5. Cardiac rehabilitation
[2017-04-15 15:33] VITALS: BP 104/72
== END 2017-04-15 15:50 | disposition home or self-care (01) ==
LOC: CATHLAB 07:53
PROVIDERS: Internal Medicine
PROC: 027034Z Dilation of Coronary Artery, One Artery with Drug-eluting Intraluminal Device, Percutaneous Approach (ICD-10-PCS; 2017-04-15)
PROC: B2111ZZ Fluoroscopy of Multiple Coronary Arteries using Low Osmolar Contrast (ICD-10-PCS; 2017-04-15)
PROC: B2151ZZ Fluoroscopy of Left Heart using Low Osmolar Contrast (ICD-10-PCS; 2017-04-15)
PROC: B240ZZ3 Ultrasonography of Single Coronary Artery, Intravascular (ICD-10-PCS; 2017-04-15)
PROC: 4A033BC Measurement of Arterial Pressure, Coronary, Percutaneous Approach (ICD-10-PCS; 2017-04-15)
PROC: 4A023N7 Measurement of Cardiac Sampling and Pressure, Left Heart, Percutaneous Approach (ICD-10-PCS; principal; 2017-04-15 09:15)
DX: I25.119 Atherosclerotic heart disease of native coronary artery with unspecified angina pectoris (principal); Z72.0 Tobacco use
CPT/HCPCS: C1725; C1760; C1769; C1876; J0153; J1644; Q9967